=== PATIENT | female | born 1970 | race African-American/Black ===

== ENCOUNTER 2017-10-23 00:32 | Inpatient (IN) | payer SELFPAY ==
[~2017-10-23] VITALS: Ht 170.2 cm; Wt 162.0 kg
[~2017-10-23 00:32] MED LIST: DOCU-109 PO; FERR325T72 PO
[2017-10-23 01:26] LABS: BASO # 0.1 x10^3/uL (0.0-0.2); BASO % 1 % (0-3); EOS # 0.2 x10^3/uL (0.0-0.7); EOS % 3 % (0-3); HEMOGLOBIN 9.4 g/dL (12.0-15.5); LYMPH % 36 % (24-48); MEAN CORPUSCULAR HEMOGLOBIN 22 pg (25-35); MEAN CORPUSCULAR HGB CONC 31 g/dL (31-37); MEAN CORPUSCULAR VOLUME 71 fL (79-100); MONO # 0.6 x10^3/uL (0.0-1.1); MONO % 7 % (0-9); NEUT # 4.5 x10^3uL (1.8-7.7); NEUT % 53 % (31-73); PLATELET COUNT 325 x10^3/uL (140-400); RED BLOOD COUNT 4.22 x10^6/uL (3.50-5.40); RED CELL DISTRIBUTION WIDTH 17.8 % (11.5-14.5); WHITE BLOOD COUNT 8.4 x10^3/uL (4.0-11.0)
[2017-10-23 01:43] LABS: CALCIUM 9.3 mg/dL (8.5-10.1); CREATININE 1.1 mg/dL (0.6-1.0); GFR 64.1; POTASSIUM 3.8 mmol/L (3.5-5.1)
[2017-10-23 01:49] LABS: ALBUMIN/GLOBULIN RATIO 0.6 (1.0-1.7); TOTAL BILIRUBIN 0.2 mg/dL (0.2-1.0); TOTAL PROTEIN 7.8 g/dL (6.4-8.2)
--- NOTE | 2017-10-23 02:17 | PHYS DOC ---
Past Medical History Past Medical History: Anemia, Hypertension Past Surgical History: Additional Past Surgical Histo: PT WOULD NOT RESPOND TO QUESTIONS Alcohol Use: None Drug Use: None Adult General Chief Complaint Chief Complaint: SHORTNESS OF BREATH HPI HPI Patient is a 47-year-old female who presents with complaint of shortness of breath and chest discomfort that she describes as tightness. She states symptoms have been present for the last 2 days. 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 She states that she had been on Coumadin from April through July and she has been off of the Coumadin since July. She does indicate that she started taking the Coumadin again 2 days ago. She states the shortness of breath is worsened with minimal exertion, stating that she is out of breath just walking from her living room to the bathroom. She rates the pain in her chest and 8 out of 10. She denies any nausea, vomiting or diaphoresis. She states that nothing improves her symptoms. Review of Systems Review of Systems Constitutional: Denies fever or chills [] Respiratory: Positive cough and shortness breath[] Cardiovascular: Positive chest pain/tightness[] GI: Denies abdominal pain, nausea, vomiting or diarrhea [] Musculoskeletal: Denies back pain or joint pain [] Integument: Denies rash or skin lesions [] All other systems were reviewed and found to be within normal limits, except as documented in this note. Allergies Allergies Allergies Coded Allergies Type Severity Reaction Last Updated Verified Penicillins Allergy Unknown 10/23/17 Yes Physical Exam Physical Exam Constitutional: Well developed, well nourished, no acute distress, non-toxic appearance. [] HENT: Normocephalic, atraumatic, bilateral external ears normal, oropharynx moist, no oral exudates, nose normal. [] Eyes: PERRLA, EOMI, conjunctiva normal, no discharge. [] Neck: Normal range of motion, no tenderness, supple, no stridor. [] Cardiovascular:Heart rate regular rhythm, no murmur [] Lungs & Thorax: Bilateral breath sounds clear to auscultation [] Abdomen: Bowel sounds normal, soft, no tenderness. [] Skin: Warm, dry, no erythema, no rash. [] Back: No tenderness, no CVA tenderness. [] Extremities: 1+ pitting edema is noted lower extremities bilaterally. [] Neurologic: Alert and oriented X 3, normal motor function, normal sensory function, no focal deficits noted. [] Current Patient Data Vital Signs Vital Signs Date Time Temp Pulse Resp B/P (MAP) Pulse Ox O2 Delivery O2 Flow Rate FiO2 10/23/17 03:30 62 18 152/74 (100) 99 10/23/17 01:01 97.6 Room Air 97.6 Lab Values Laboratory Tests Test 10/23/17 01:10 White Blood Count 8.4 x10^3/uL (4.0-11.0) Red Blood Count 4.22 x10^6/uL (3.50-5.40) Hemoglobin 9.4 g/dL (12.0-15.5) L Hematocrit 30.0 % (36.0-47.0) L Mean Corpuscular Volume 71 fL (79-100) L Mean Corpuscular Hemoglobin 22 pg (25-35) L Mean Corpuscular Hemoglobin Concent 31 g/dL (31-37) Red Cell Distribution Width 17.8 % (11.5-14.5) H Platelet Count 325 x10^3/uL (140-400) Neutrophils (%) (Auto) 53 % (31-73) Lymphocytes (%) (Auto) 36 % (24-48) Monocytes (%) (Auto) 7 % (0-9) Eosinophils (%) (Auto) 3 % (0-3) Basophils (%) (Auto) 1 % (0-3) Neutrophils # (Auto) 4.5 x10^3uL (1.8-7.7) Lymphocytes # (Auto) 3.0 x10^3/uL (1.0-4.8) Monocytes # (Auto) 0.6 x10^3/uL (0.0-1.1) Eosinophils # (Auto) 0.2 x10^3/uL (0.0-0.7) Basophils # (Auto) 0.1 x10^3/uL (0.0-0.2) D-Dimer (Irena) 0.36 ug/mlFEU (0.00-0.50) Sodium Level 137 mmol/L (136-145) Potassium Level 3.8 mmol/L (3.5-5.1) Chloride Level 103 mmol/L (98-107) Carbon Dioxide Level 30 mmol/L (21-32) Anion Gap 4 (6-14) L Blood Urea Nitrogen 20 mg/dL (7-20) Creatinine 1.1 mg/dL (0.6-1.0) H Estimated GFR (Cockcroft-Gault) 64.1 BUN/Creatinine Ratio 18 (6-20) Glucose Level 149 mg/dL (70-99) H Calcium Level 9.3 mg/dL (8.5-10.1) Total Bilirubin 0.2 mg/dL (0.2-1.0) Aspartate Amino Transferase (AST) 10 U/L (15-37) L Alanine Aminotransferase (ALT) 13 U/L (14-59) L Alkaline Phosphatase 88 U/L (46-116) Troponin I Quantitative < 0.017 ng/mL (0.000-0.055) LV-Aka-G-Type Natriuretic Peptide 61 pg/mL (0-124) Total Protein 7.8 g/dL (6.4-8.2) Albumin 3.0 g/dL (3.4-5.0) L Albumin/Globulin Ratio 0.6 (1.0-1.7) L Laboratory Tests 10/23/17 01:10 Laboratory Tests 10/23/17 01:10 EKG EKG [] Interpretation Time: EKG demonstrates a normal sinus rhythm with first-degree AV block. Heart rate is 65. There are no significant ST segment abnormalities. Radiology/Procedures Radiology/Procedures [] Impressions: Chest x-ray demonstrates no acute process. Course & Med Decision Making Course & Med Decision Making Pertinent Labs and Imaging studies reviewed. (See chart for details) A cardiac workup was completed as well as a d-dimer. Initial workup has returned unremarkable. A second troponin has been ordered. Findings of workup have been reviewed with patient and patient does indicate that she is still having some chest pressure. Patient is morbidly obese and is hypertensive. Patient also has history of DVT. She does not have a primary care provider and therefore we'll plan on keeping patient overnight for cardiac rule out. Dragon Disclaimer Dragon Disclaimer This electronic medical record was generated, in whole or in part, using a voice recognition dictation system. Departure Departure Impression: Primary Impression: Chest pain Additional Impressions: Dyspnea Hypertension Disposition: 09 ADMITTED INPATIENT Admitting Physician: Xie. Ortega Condition: GOOD Referrals: NO PCP (PCP) Problem Qualifiers Primary Impression: Chest pain Chest pain type: unspecified Qualified Codes: R07.9 - Chest pain, unspecified Additional Impressions: Dyspnea Dyspnea type: dyspnea on exertion Qualified Codes: R06.09 - Other forms of dyspnea Hypertension Hypertension type: unspecified Qualified Codes: I10 - Essential (primary) hypertension FEI GOLDMAN Jr. DO Oct 23, 2017 02:17
[2017-10-23] MEDS ORDERED: NITROGLYCERIN SUBLINGUAL 0.4 MG BOTTLE OF 25. SL PRN ×2 (04:15→04:30)
[2017-10-23] MEDS ORDERED: MORPHINE SULFATE 2 MG/ML DISP.SYRIN. IV PRN (04:30)
[2017-10-23] MEDS ORDERED: ONDANSETRON PF 4 MG/2 ML VIAL. IV PRN (04:30)
[2017-10-23] MEDS ORDERED: ASPIRIN 325 MG TABLET PO ONE (04:30)
[2017-10-23 05:29] VITALS: BP 159/86
[2017-10-23] MEDS ORDERED: METF500T5 PO (05:40)
[2017-10-23] MEDS ORDERED: VERA240C2 PO (05:40)
[2017-10-23] MEDS ORDERED: WARF2TAB96 PO (05:40)
--- NOTE | 2017-10-23 05:42 | EKG ---
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
[2017-10-23 07:42] VITALS: BP 136/82
--- NOTE | 2017-10-23 07:42 | RAD ---
Portable chest, 10/23/2017: HISTORY: Chest pain, shortness of breath The heart is at the upper limits of normal in size. The pulmonary vascularity is normal. No pulmonary infiltrate is seen. There is no evidence of pleural fluid. IMPRESSION: No acute cardiopulmonary abnormality is detected. Electronically signed by: Ramy Bueno MD (10/23/2017 7:39 AM) [facility]
[2017-10-23 09:44] LABS: ANISOCYTOSIS SLIGHT; HYPOCHROMIA MOD; MICROCYTOSIS PRESENT; PLT ESTIMATE ADEQUATE (ADEQUATE)
[2017-10-23] MEDS ORDERED: DOCUSATE SODIUM 100 MG CAPSULE. PO PRN (10:00)
[2017-10-23] MEDS ORDERED: MORPHINE SULFATE 4 MG/ML DISP.SYRIN. IV PRN (10:00)
--- NOTE | 2017-10-23 10:00 | PDOC1 ---
History and Physical Date of Admission Date of Admission DATE: 10/23/17 TIME: 09:48 Identification/Chief Complaint Chief Complaint chest pain Source Source: Chart review, Patient History of Present Illness History of Present Illness Ms. Flood, is a 47-year-old female admit with acute chest pain and shortness of breath. She has had that she describes as tightness, was 8./10, now almost gone symptoms had worsened over 2 days, and she has felt markedly tired, and weak ms. 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 Past Medical History Cardiovascular: HTN Heme/Onc: Anemia NOS Psych: Anxiety Past Surgical History Past Surgical History: No pertinent history Family History Family History: Family History Unknown Social History Smoke: No ALCOHOL: none Drugs: None Current Problem List Problem List Problems Medical Problems: (1) Chest pain Status: Acute (2) Dyspnea Status: Acute (3) Hypertension Status: Acute Current Medications Current Medications Current Medications Aspirin (Ashu Aspirin) 325 mg 1X ONCE PO Last administered on 10/23/17at 04:30 ; Start 10/23/17 at 04:30; Stop 10/23/17 at 04:31; Status DC Nitroglycerin (Nitrostat) 0.4 mg PRN Q5MIN PRN SL CHEST PAIN; Start 10/23/17 at 04:30 Ondansetron HCl (Zofran) 4 mg PRN Q8HRS PRN IV NAUSEA/VOMITING; Start 10/23/17 at 04:30; Stop 10/24/17 at 04:29 Morphine Sulfate (Morphine Sulfate) 2 mg PRN Q2HR PRN IV PAIN; Start 10/23/17 at 04:30; Stop 10/24/17 at 04:29 Nitroglycerin (Nitrostat) 0.4 mg PRN Q5MIN PRN SL CHEST PAIN; Start 10/23/17 at 04:15; Stop 10/24/17 at 06:00 Lidocaine (Lidoderm) 1 patch DAILY TD ; Start 10/23/17 at 10:00; Status UNV Miscellaneous (Lidoderm Patch Removal) 1 ea QHS MC ; Start 10/23/17 at 21:00; Status UNV Active Scripts Active Colace (Docusate Sodium) 100 Mg Capsule 100 Mg PO PRN DAILY PRN Feosol (Ferrous Sulfate) 325 Mg Tablet 325 Mg PO DAILYWBKFT Reported Metformin Hcl 500 Mg Tablet 500 Mg PO BIDWMEALS Verapamil Er (Verapamil Hcl) 240 Mg Cap24h.pel 240 Mg PO DAILY Warfarin Sodium 2 Mg Tablet 1 Mg PO DAILY Allergies Allergies: Coded Allergies: Penicillins (Verified Allergy, Unknown, 10/23/17) ROS General: No: Chills, Night Sweats, Fatigue, Malaise, Appetite, Other PSYCHOLOGICAL ROS: No: Anxiety, Behavioral Disorder, Concentration difficultie , Decreased libido, Depression, Disorientation, Hallucinations, Hostility, Irritablity, Memory difficulties, Mood Swings, Obsessive thoughts, Physical abuse, Sexual abuse, Sleep disturbances, Suicidal ideation, Other Eyes: No Blurry vision, No Decreased vision, No Double vision, No Dry eyes, No Excessive tearing, No Eye Pain, No Itchy Eyes, No Loss of vision, No Photophobia , No Scotomata, No Uses contacts, No Uses glasses, No Other HEENT: No: Heacaches, Visual Changes, Hearing change, Nasal congestion, Nasal discharge, Oral lesions, Sinus pain, Sore Throat, Epistaxis, Sneezing, Snoring, Tinnitus, Vertigo, Vocal changes, Other Respiratory: No: Cough, Hemoptysis, Orthopnea, Pleuritic Pain, Shortness of breath, SOB with excertion, Sputum Changes, Stridor, Tachypnea, Wheezing, Other Cardiovascular: No Chest Pain, No Palpitations, No Orthopnea, No Paroxysmal Noc. Dyspnea, No Edema, No Lt Headedness, No Other Gastrointestinal: No Nausea, No Vomiting, No Abdominal Pain, No Diarrhea, No Constipation, No Melena, No Hematochezia, No Other Genitourinary: No Dysuria, No Frequency, No Incontinence, No Hematuria, No Retention, No Discharge, No Urgency, No Pain, No Flank Pain, No Other, No , No , No , No , No , No , No Musculoskeletal: No Gait Disturbance, No Joint Pain, No Joint Stiffness, No Joint Swelling, No Muscle Pain, No Muscular Weakness, No Pain In:, No Swelling In:, No Other Neurological: No Behavorial Changes, No Bowel/Bladder ControlChng, No Confusion , No Dizziness, No Gait Disturbance, No Headaches, No Impaired Coord/balance, No Memory Loss, No Numbness/Tingling, No Seizures, No Speech Problems, No Tremors, No Visual Changes, No Weakness, No Other Skin: No Dry Skin, No Eczema, No Hair Changes, No Lumps, No Mole Changes, No Mottling, No Nail Changes, No Pruritus, No Rash, No Skin Lesion Changes, No Other, No Acne Physical Exam General: Alert, Oriented X3, Cooperative, mild distress HEENT: PERRLA, EOMI, Mucous membr. moist/pink, Other Lungs: Clear to auscultation Heart: S1S2, RRR, no gallops, no murmurs Abdomen: Soft (very obese, ), No tenderness Rectal Exam: not examined Extremities: No clubbing, No edema Skin: No rashes, No significant lesion Neuro: Normal gait, Normal speech, Normal tone Psych/Mental Status: Mood NL, Other Vitals Vitals Vital Signs Date Time Temp Pulse Resp B/P (MAP) Pulse Ox O2 Delivery O2 Flow Rate FiO2 10/23/17 07:42 98.6 93 18 136/82 (100) 95 Room Air 98.6 Labs Labs Laboratory Tests Test 10/23/17 01:10 10/23/17 04:15 10/23/17 07:15 White Blood Count 8.4 x10^3/uL (4.0-11.0) Red Blood Count 4.22 x10^6/uL (3.50-5.40) Hemoglobin 9.4 g/dL (12.0-15.5) Hematocrit 30.0 % (36.0-47.0) Mean Corpuscular Volume 71 fL (79-100) Mean Corpuscular Hemoglobin 22 pg (25-35) Mean Corpuscular Hemoglobin Concent 31 g/dL (31-37) Red Cell Distribution Width 17.8 % (11.5-14.5) Platelet Count 325 x10^3/uL (140-400) Neutrophils (%) (Auto) 53 % (31-73) Lymphocytes (%) (Auto) 36 % (24-48) Monocytes (%) (Auto) 7 % (0-9) Eosinophils (%) (Auto) 3 % (0-3) Basophils (%) (Auto) 1 % (0-3) Neutrophils # (Auto) 4.5 x10^3uL (1.8-7.7) Lymphocytes # (Auto) 3.0 x10^3/uL (1.0-4.8) Monocytes # (Auto) 0.6 x10^3/uL (0.0-1.1) Eosinophils # (Auto) 0.2 x10^3/uL (0.0-0.7) Basophils # (Auto) 0.1 x10^3/uL (0.0-0.2) Platelet Estimate Adequate (ADEQUATE) Hypochromasia Mod Anisocytosis Slight Microcytosis Present D-Dimer (Irena) 0.36 ug/mlFEU (0.00-0.50) Sodium Level 137 mmol/L (136-145) Potassium Level 3.8 mmol/L (3.5-5.1) Chloride Level 103 mmol/L (98-107) Carbon Dioxide Level 30 mmol/L (21-32) Anion Gap 4 (6-14) Blood Urea Nitrogen 20 mg/dL (7-20) Creatinine 1.1 mg/dL (0.6-1.0) Estimated GFR (Cockcroft-Gault) 64.1 BUN/Creatinine Ratio 18 (6-20) Glucose Level 149 mg/dL (70-99) Calcium Level 9.3 mg/dL (8.5-10.1) Total Bilirubin 0.2 mg/dL (0.2-1.0) Aspartate Amino Transf (AST/SGOT) 10 U/L (15-37) Alanine Aminotransferase (ALT/SGPT) 13 U/L (14-59) Alkaline Phosphatase 88 U/L (46-116) Troponin I Quantitative < 0.017 ng/mL (0.000-0.055) < 0.017 ng/mL (0.000-0.055) < 0.017 ng/mL (0.000-0.055) VI-Qvu-A-Type Natriuretic Peptide 61 pg/mL (0-124) Total Protein 7.8 g/dL (6.4-8.2) Albumin 3.0 g/dL (3.4-5.0) Albumin/Globulin Ratio 0.6 (1.0-1.7) Laboratory Tests Test 10/23/17 01:10 10/23/17 04:15 10/23/17 07:15 White Blood Count 8.4 x10^3/uL (4.0-11.0) Red Blood Count 4.22 x10^6/uL (3.50-5.40) Hemoglobin 9.4 g/dL (12.0-15.5) Hematocrit 30.0 % (36.0-47.0) Mean Corpuscular Volume 71 fL (79-100) Mean Corpuscular Hemoglobin 22 pg (25-35) Mean Corpuscular Hemoglobin Concent 31 g/dL (31-37) Red Cell Distribution Width 17.8 % (11.5-14.5) Platelet Count 325 x10^3/uL (140-400) Neutrophils (%) (Auto) 53 % (31-73) Lymphocytes (%) (Auto) 36 % (24-48) Monocytes (%) (Auto) 7 % (0-9) Eosinophils (%) (Auto) 3 % (0-3) Basophils (%) (Auto) 1 % (0-3) Neutrophils # (Auto) 4.5 x10^3uL (1.8-7.7) Lymphocytes # (Auto) 3.0 x10^3/uL (1.0-4.8) Monocytes # (Auto) 0.6 x10^3/uL (0.0-1.1) Eosinophils # (Auto) 0.2 x10^3/uL (0.0-0.7) Basophils # (Auto) 0.1 x10^3/uL (0.0-0.2) Platelet Estimate Adequate (ADEQUATE) Hypochromasia Mod Anisocytosis Slight Microcytosis Present D-Dimer (Irena) 0.36 ug/mlFEU (0.00-0.50) Sodium Level 137 mmol/L (136-145) Potassium Level 3.8 mmol/L (3.5-5.1) Chloride Level 103 mmol/L (98-107) Carbon Dioxide Level 30 mmol/L (21-32) Anion Gap 4 (6-14) Blood Urea Nitrogen 20 mg/dL (7-20) Creatinine 1.1 mg/dL (0.6-1.0) Estimated GFR (Cockcroft-Gault) 64.1 BUN/Creatinine Ratio 18 (6-20) Glucose Level 149 mg/dL (70-99) Calcium Level 9.3 mg/dL (8.5-10.1) Total Bilirubin 0.2 mg/dL (0.2-1.0) Aspartate Amino Transf (AST/SGOT) 10 U/L (15-37) Alanine Aminotransferase (ALT/SGPT) 13 U/L (14-59) Alkaline Phosphatase 88 U/L (46-116) Troponin I Quantitative < 0.017 ng/mL (0.000-0.055) < 0.017 ng/mL (0.000-0.055) < 0.017 ng/mL (0.000-0.055) HX-Eik-X-Type Natriuretic Peptide 61 pg/mL (0-124) Total Protein 7.8 g/dL (6.4-8.2) Albumin 3.0 g/dL (3.4-5.0) Albumin/Globulin Ratio 0.6 (1.0-1.7) VTE Prophylaxis Ordered VTE Prophylaxis Devices: No VTE Pharmacological Prophylaxi: Yes Assessment/Plan Assessment/Plan chest pain angina with exertion hx of DVT, d-dimer low, marked dyspnea on exertion, check echo to eval for diastolic heart failure , she reports possible history of enlarged heart morbid obesity, BMI 56 serum albumin low, mod malnutrition microcytic anemia, she reports hx iron deficiency, colonoscpy done 3 years ago , IV iron and blood given at [facility] months ago pre Dm2 on metformin MAI RIVERA MD Oct 23, 2017 10:00
[2017-10-23] MEDS: VERAPAMIL SR 120 MG TABLET.ER. PO SCH (10:12)
[2017-10-23] MEDS: FERROUS SULFATE 325 MG TABLET. PO SCH (10:12)
[2017-10-23] MEDS: LIDOCAINE (700MG/PATCH) PATCH. TD SCH (10:15)
[2017-10-23 11:49] VITALS: BP 147/83
--- NOTE | 2017-10-23 15:03 | PDOC2 ---
CONSULT Date of Consult Date of Consult DATE: 10/23/17 TIME: 14:56 Reason for Consult Reason for Consult: Increasing dyspnea on exertion and chest pain Referring Physician Referring Physician: Dr. Norton Identification/Chief Complaint Chief Complaint Increasing shortness of breath Source Source: Patient History of Present Illness Reason for Visit: The patient is a 47-year-old female who reports episodes of increasing shortness of breath and chest discomfort over the past 2-3 days. The patient reports a history of hypertension and possibly a previous DVT. He has been off Coumadin for 3 months. She also reports a history of a cardiac workup at [facility] which by her report included a normal stress test earlier this year. There was some abnormality on her echocardiogram and she was treated medically. This morning she is feeling better. Her shortness of breath has improved. Her chest pain has resolved. Cardiac enzymes are normal. Past Medical History Cardiovascular: HTN, Other (heart murmur) Heme/Onc: Anemia NOS Psych: Anxiety Past Surgical History Past Surgical History: , No pertinent history Family History Family History: Family History Unknown Social History No ALCOHOL: none Drugs: None Lives: with Family Current Problem List Problem List Problems Medical Problems: (1) Chest pain Status: Acute (2) Dyspnea Status: Acute (3) Hypertension Status: Acute Current Medications Current Medications Current Medications Aspirin (Ashu Aspirin) 325 mg 1X ONCE PO Last administered on 10/23/17at 04:30 ; Start 10/23/17 at 04:30; Stop 10/23/17 at 04:31; Status DC Nitroglycerin (Nitrostat) 0.4 mg PRN Q5MIN PRN SL CHEST PAIN; Start 10/23/17 at 04:30 Ondansetron HCl (Zofran) 4 mg PRN Q8HRS PRN IV NAUSEA/VOMITING; Start 10/23/17 at 04:30; Stop 10/24/17 at 04:29 Morphine Sulfate (Morphine Sulfate) 2 mg PRN Q2HR PRN IV PAIN; Start 10/23/17 at 04:30; Stop 10/23/17 at 09:56; Status DC Nitroglycerin (Nitrostat) 0.4 mg PRN Q5MIN PRN SL CHEST PAIN; Start 10/23/17 at 04:15; Stop 10/23/17 at 09:56; Status DC Lidocaine (Lidoderm) 1 patch DAILY TD Last administered on 10/23/17at 10:15; Start 10/23/17 at 10:00 Miscellaneous (Lidoderm Patch Removal) 1 ea QHS MC ; Start 10/23/17 at 21:00 Docusate Sodium (Colace) 100 mg PRN DAILY PRN PO CONSTIPATION; Start 10/23/17 at 10:00 Ferrous Sulfate (Feosol) 325 mg DAILYWBKFT PO Last administered on 10/23/17at 10 :12; Start 10/23/17 at 10:00 Verapamil HCl (Calan Sr) 240 mg DAILY PO Last administered on 10/23/17at 10:12; Start 10/23/17 at 10:00 Morphine Sulfate (Morphine Sulfate) 4 mg PRN Q2HR PRN IV PAIN; Start 10/23/17 at 10:00 Enoxaparin Sodium (Lovenox Per Pharmacy Prophylaxis Dosing) 1 each PRN DAILY PRN MC SEE COMMENTS; Start 10/23/17 at 10:15 Enoxaparin Sodium (Lovenox 60mg Syringe) 60 mg Q12HR SQ Last administered on 01/30at 12:27; Start 10/23/17 at 10:30 Active Scripts Active Colace (Docusate Sodium) 100 Mg Capsule 100 Mg PO PRN DAILY PRN Feosol (Ferrous Sulfate) 325 Mg Tablet 325 Mg PO DAILYWBKFT Reported Metformin Hcl 500 Mg Tablet 500 Mg PO BIDWMEALS Verapamil Er (Verapamil Hcl) 240 Mg Cap24h.pel 240 Mg PO DAILY Warfarin Sodium 2 Mg Tablet 1 Mg PO DAILY Allergies Allergies: Coded Allergies: Penicillins (Verified Allergy, Unknown, 10/23/17) ROS General: YES: Fatigue Respiratory: YES: SOB with excertion Cardiovascular: yes Chest Pain Physical Exam General: No acute distress HEENT: Atraumatic Lungs: Clear to auscultation Heart: Regular rate Abdomen: Normal bowel sounds Vitals VITALS Vital Signs Date Time Temp Pulse Resp B/P (MAP) Pulse Ox O2 Delivery O2 Flow Rate FiO2 10/23/17 11:49 98.0 104 18 147/83 (104) 95 Room Air 98.0 Labs Labs Laboratory Tests Test 10/23/17 01:10 10/23/17 04:15 10/23/17 07:15 White Blood Count 8.4 x10^3/uL (4.0-11.0) Red Blood Count 4.22 x10^6/uL (3.50-5.40) Hemoglobin 9.4 g/dL (12.0-15.5) Hematocrit 30.0 % (36.0-47.0) Mean Corpuscular Volume 71 fL (79-100) Mean Corpuscular Hemoglobin 22 pg (25-35) Mean Corpuscular Hemoglobin Concent 31 g/dL (31-37) Red Cell Distribution Width 17.8 % (11.5-14.5) Platelet Count 325 x10^3/uL (140-400) Neutrophils (%) (Auto) 53 % (31-73) Lymphocytes (%) (Auto) 36 % (24-48) Monocytes (%) (Auto) 7 % (0-9) Eosinophils (%) (Auto) 3 % (0-3) Basophils (%) (Auto) 1 % (0-3) Neutrophils # (Auto) 4.5 x10^3uL (1.8-7.7) Lymphocytes # (Auto) 3.0 x10^3/uL (1.0-4.8) Monocytes # (Auto) 0.6 x10^3/uL (0.0-1.1) Eosinophils # (Auto) 0.2 x10^3/uL (0.0-0.7) Basophils # (Auto) 0.1 x10^3/uL (0.0-0.2) Platelet Estimate Adequate (ADEQUATE) Hypochromasia Mod Anisocytosis Slight Microcytosis Present D-Dimer (Irena) 0.36 ug/mlFEU (0.00-0.50) Sodium Level 137 mmol/L (136-145) Potassium Level 3.8 mmol/L (3.5-5.1) Chloride Level 103 mmol/L (98-107) Carbon Dioxide Level 30 mmol/L (21-32) Anion Gap 4 (6-14) Blood Urea Nitrogen 20 mg/dL (7-20) Creatinine 1.1 mg/dL (0.6-1.0) Estimated GFR (Cockcroft-Gault) 64.1 BUN/Creatinine Ratio 18 (6-20) Glucose Level 149 mg/dL (70-99) Calcium Level 9.3 mg/dL (8.5-10.1) Total Bilirubin 0.2 mg/dL (0.2-1.0) Aspartate Amino Transf (AST/SGOT) 10 U/L (15-37) Alanine Aminotransferase (ALT/SGPT) 13 U/L (14-59) Alkaline Phosphatase 88 U/L (46-116) Troponin I Quantitative < 0.017 ng/mL (0.000-0.055) < 0.017 ng/mL (0.000-0.055) < 0.017 ng/mL (0.000-0.055) ZK-Pwr-G-Type Natriuretic Peptide 61 pg/mL (0-124) Total Protein 7.8 g/dL (6.4-8.2) Albumin 3.0 g/dL (3.4-5.0) Albumin/Globulin Ratio 0.6 (1.0-1.7) Iron Level 26 ug/dL (50-170) Total Iron Binding Capacity 407 ug/dL (250-450) Iron Saturation 6 % (15-34) Laboratory Tests Test 10/23/17 01:10 10/23/17 04:15 10/23/17 07:15 White Blood Count 8.4 x10^3/uL (4.0-11.0) Red Blood Count 4.22 x10^6/uL (3.50-5.40) Hemoglobin 9.4 g/dL (12.0-15.5) Hematocrit 30.0 % (36.0-47.0) Mean Corpuscular Volume 71 fL (79-100) Mean Corpuscular Hemoglobin 22 pg (25-35) Mean Corpuscular Hemoglobin Concent 31 g/dL (31-37) Red Cell Distribution Width 17.8 % (11.5-14.5) Platelet Count 325 x10^3/uL (140-400) Neutrophils (%) (Auto) 53 % (31-73) Lymphocytes (%) (Auto) 36 % (24-48) Monocytes (%) (Auto) 7 % (0-9) Eosinophils (%) (Auto) 3 % (0-3) Basophils (%) (Auto) 1 % (0-3) Neutrophils # (Auto) 4.5 x10^3uL (1.8-7.7) Lymphocytes # (Auto) 3.0 x10^3/uL (1.0-4.8) Monocytes # (Auto) 0.6 x10^3/uL (0.0-1.1) Eosinophils # (Auto) 0.2 x10^3/uL (0.0-0.7) Basophils # (Auto) 0.1 x10^3/uL (0.0-0.2) Platelet Estimate Adequate (ADEQUATE) Hypochromasia Mod Anisocytosis Slight Microcytosis Present D-Dimer (Irena) 0.36 ug/mlFEU (0.00-0.50) Sodium Level 137 mmol/L (136-145) Potassium Level 3.8 mmol/L (3.5-5.1) Chloride Level 103 mmol/L (98-107) Carbon Dioxide Level 30 mmol/L (21-32) Anion Gap 4 (6-14) Blood Urea Nitrogen 20 mg/dL (7-20) Creatinine 1.1 mg/dL (0.6-1.0) Estimated GFR (Cockcroft-Gault) 64.1 BUN/Creatinine Ratio 18 (6-20) Glucose Level 149 mg/dL (70-99) Calcium Level 9.3 mg/dL (8.5-10.1) Total Bilirubin 0.2 mg/dL (0.2-1.0) Aspartate Amino Transf (AST/SGOT) 10 U/L (15-37) Alanine Aminotransferase (ALT/SGPT) 13 U/L (14-59) Alkaline Phosphatase 88 U/L (46-116) Troponin I Quantitative < 0.017 ng/mL (0.000-0.055) < 0.017 ng/mL (0.000-0.055) < 0.017 ng/mL (0.000-0.055) ZJ-Yog-L-Type Natriuretic Peptide 61 pg/mL (0-124) Total Protein 7.8 g/dL (6.4-8.2) Albumin 3.0 g/dL (3.4-5.0) Albumin/Globulin Ratio 0.6 (1.0-1.7) Iron Level 26 ug/dL (50-170) Total Iron Binding Capacity 407 ug/dL (250-450) Iron Saturation 6 % (15-34) Images Images Chest x-ray shows no acute infiltrates. Assessment/Plan Assessment/Plan 1. Increasing dyspnea on exertion. This is somewhat improved. Patient's d-dimer is normal. EKG shows no ischemic changes. Troponins are normal. She reports some type of echocardiographic abnormality earlier this year but a normal stress test. We'll obtain records from [facility]. We'll check an echocardiogram. We'll gradually increase activities. 2. Hypertension. Patient had pressures under better control. Will continue present treatments. 3. Reported history of DVTs. D-dimer is normal. 4. Morbid obesity. Thank you for allowing us to participate in the care of your patient. ABIODUN ANGULO MD Oct 23, 2017 15:03
[2017-10-23 15:31] VITALS: BP 143/80
[2017-10-23 19:39] VITALS: BP_SYST 74
[2017-10-23] MEDS: PATCH REMOVAL. MC SCH (20:08)
[2017-10-23 23:59] VITALS: BP 146/77
[2017-10-24 03:10] VITALS: BP 118/68
[2017-10-24 07:56] VITALS: BP 136/70
[2017-10-24] MEDS: LIDOCAINE (700MG/PATCH) PATCH. TD SCH (08:26)
[2017-10-24] MEDS: FERROUS SULFATE 325 MG TABLET. PO SCH (08:26)
[2017-10-24] MEDS: VERAPAMIL SR 120 MG TABLET.ER. PO SCH (08:27)
[2017-10-24 08:30] LABS: BASO # 0.1 x10^3/uL (0.0-0.2); BASO % 1 % (0-3); EOS # 0.2 x10^3/uL (0.0-0.7); EOS % 3 % (0-3); HEMATOCRIT 30.2 % (36.0-47.0); HEMOGLOBIN 9.3 g/dL (12.0-15.5); LYMPH # 2.2 x10^3/uL (1.0-4.8); LYMPH % 31 % (24-48); MEAN CORPUSCULAR HEMOGLOBIN 22 pg (25-35); MEAN CORPUSCULAR HGB CONC 31 g/dL (31-37); MEAN CORPUSCULAR VOLUME 72 fL (79-100); MONO # 0.4 x10^3/uL (0.0-1.1); MONO % 5 % (0-9); NEUT # 4.2 x10^3uL (1.8-7.7); NEUT % 60 % (31-73); PLATELET COUNT 328 x10^3/uL (140-400); RED BLOOD COUNT 4.21 x10^6/uL (3.50-5.40); RED CELL DISTRIBUTION WIDTH 18.3 % (11.5-14.5)
[2017-10-24 08:36] LABS: CREATININE 0.9 mg/dL (0.6-1.0); GFR 80.9; POTASSIUM 4.4 mmol/L (3.5-5.1)
[2017-10-24] MEDS ORDERED: MAG HYDROX/ALUMINUM HYD/SIMETH 30 ML ORAL.SUSP PO PRN (09:00)
[2017-10-24] MEDS ORDERED: FAMOTIDINE 20 MG TABLET. PO ONE (09:15)
[2017-10-24] MEDS ORDERED: IRON SUCROSE COMPLEX 500 MG in IV NORMAL SALINE 250ML 250 ML IV ONE (09:30)
--- NOTE | 2017-10-24 09:31 | PDOC ---
PROGRESS NOTES Chief Complaint Chief Complaint chest pain angina with exertion hx of DVT, d-dimer low, marked dyspnea on exertion, poss diastolic heart failure, morbid obesity, BMI 56 serum albumin low, mod malnutrition microcytic anemia, iron deficiency, will give IV iron pre Dm2 on metformin History of Present Illness History of Present Illness abd pain, gas Vitals Vitals Vital Signs Date Time Temp Pulse Resp B/P (MAP) Pulse Ox O2 Delivery O2 Flow Rate FiO2 10/24/17 08:27 66 136/70 10/24/17 07:56 97.9 18 97 Room Air 97.9 Physical Exam General: Alert, Cooperative, No acute distress Heart: Regular rate Lungs: Clear Abdomen: Normal bowel sounds, No tenderness Extremities: No clubbing, No edema Skin: No rashes, No significant lesion Labs LABS Laboratory Tests Test 10/23/17 20:32 10/24/17 07:35 Glucose (Fingerstick) 141 mg/dL (70-99) White Blood Count 7.0 x10^3/uL (4.0-11.0) Red Blood Count 4.21 x10^6/uL (3.50-5.40) Hemoglobin 9.3 g/dL (12.0-15.5) Hematocrit 30.2 % (36.0-47.0) Mean Corpuscular Volume 72 fL (79-100) Mean Corpuscular Hemoglobin 22 pg (25-35) Mean Corpuscular Hemoglobin Concent 31 g/dL (31-37) Red Cell Distribution Width 18.3 % (11.5-14.5) Platelet Count 328 x10^3/uL (140-400) Neutrophils (%) (Auto) 60 % (31-73) Lymphocytes (%) (Auto) 31 % (24-48) Monocytes (%) (Auto) 5 % (0-9) Eosinophils (%) (Auto) 3 % (0-3) Basophils (%) (Auto) 1 % (0-3) Neutrophils # (Auto) 4.2 x10^3uL (1.8-7.7) Lymphocytes # (Auto) 2.2 x10^3/uL (1.0-4.8) Monocytes # (Auto) 0.4 x10^3/uL (0.0-1.1) Eosinophils # (Auto) 0.2 x10^3/uL (0.0-0.7) Basophils # (Auto) 0.1 x10^3/uL (0.0-0.2) Sodium Level 138 mmol/L (136-145) Potassium Level 4.4 mmol/L (3.5-5.1) Chloride Level 103 mmol/L (98-107) Carbon Dioxide Level 29 mmol/L (21-32) Anion Gap 6 (6-14) Blood Urea Nitrogen 19 mg/dL (7-20) Creatinine 0.9 mg/dL (0.6-1.0) Estimated GFR (Cockcroft-Gault) 80.9 Glucose Level 119 mg/dL (70-99) Calcium Level 9.0 mg/dL (8.5-10.1) Assessment and Plan Assessmemt and Plan Problems Medical Problems: (1) Chest pain Status: Acute (2) Dyspnea Status: Acute (3) Hypertension Status: Acute Comment Review of Relevant I have reviewed the following items keanu (where applicable) has been applied. Labs Laboratory Tests Test 10/23/17 01:10 10/23/17 04:15 10/23/17 07:15 10/23/17 20:32 White Blood Count 8.4 x10^3/uL (4.0-11.0) Red Blood Count 4.22 x10^6/uL (3.50-5.40) Hemoglobin 9.4 g/dL (12.0-15.5) Hematocrit 30.0 % (36.0-47.0) Mean Corpuscular Volume 71 fL (79-100) Mean Corpuscular Hemoglobin 22 pg (25-35) Mean Corpuscular Hemoglobin Concent 31 g/dL (31-37) Red Cell Distribution Width 17.8 % (11.5-14.5) Platelet Count 325 x10^3/uL (140-400) Neutrophils (%) (Auto) 53 % (31-73) Lymphocytes (%) (Auto) 36 % (24-48) Monocytes (%) (Auto) 7 % (0-9) Eosinophils (%) (Auto) 3 % (0-3) Basophils (%) (Auto) 1 % (0-3) Neutrophils # (Auto) 4.5 x10^3uL (1.8-7.7) Lymphocytes # (Auto) 3.0 x10^3/uL (1.0-4.8) Monocytes # (Auto) 0.6 x10^3/uL (0.0-1.1) Eosinophils # (Auto) 0.2 x10^3/uL (0.0-0.7) Basophils # (Auto) 0.1 x10^3/uL (0.0-0.2) Platelet Estimate Adequate (ADEQUATE) Hypochromasia Mod Anisocytosis Slight Microcytosis Present D-Dimer (Irena) 0.36 ug/mlFEU (0.00-0.50) Sodium Level 137 mmol/L (136-145) Potassium Level 3.8 mmol/L (3.5-5.1) Chloride Level 103 mmol/L (98-107) Carbon Dioxide Level 30 mmol/L (21-32) Anion Gap 4 (6-14) Blood Urea Nitrogen 20 mg/dL (7-20) Creatinine 1.1 mg/dL (0.6-1.0) Estimated GFR (Cockcroft-Gault) 64.1 BUN/Creatinine Ratio 18 (6-20) Glucose Level 149 mg/dL (70-99) Calcium Level 9.3 mg/dL (8.5-10.1) Total Bilirubin 0.2 mg/dL (0.2-1.0) Aspartate Amino Transf (AST/SGOT) 10 U/L (15-37) Alanine Aminotransferase (ALT/SGPT) 13 U/L (14-59) Alkaline Phosphatase 88 U/L (46-116) Troponin I Quantitative < 0.017 ng/mL (0.000-0.055) < 0.017 ng/mL (0.000-0.055) < 0.017 ng/mL (0.000-0.055) OD-Vjc-Y-Type Natriuretic Peptide 61 pg/mL (0-124) Total Protein 7.8 g/dL (6.4-8.2) Albumin 3.0 g/dL (3.4-5.0) Albumin/Globulin Ratio 0.6 (1.0-1.7) Iron Level 26 ug/dL (50-170) Total Iron Binding Capacity 407 ug/dL (250-450) Iron Saturation 6 % (15-34) Glucose (Fingerstick) 141 mg/dL (70-99) Test 10/24/17 07:35 White Blood Count 7.0 x10^3/uL (4.0-11.0) Red Blood Count 4.21 x10^6/uL (3.50-5.40) Hemoglobin 9.3 g/dL (12.0-15.5) Hematocrit 30.2 % (36.0-47.0) Mean Corpuscular Volume 72 fL (79-100) Mean Corpuscular Hemoglobin 22 pg (25-35) Mean Corpuscular Hemoglobin Concent 31 g/dL (31-37) Red Cell Distribution Width 18.3 % (11.5-14.5) Platelet Count 328 x10^3/uL (140-400) Neutrophils (%) (Auto) 60 % (31-73) Lymphocytes (%) (Auto) 31 % (24-48) Monocytes (%) (Auto) 5 % (0-9) Eosinophils (%) (Auto) 3 % (0-3) Basophils (%) (Auto) 1 % (0-3) Neutrophils # (Auto) 4.2 x10^3uL (1.8-7.7) Lymphocytes # (Auto) 2.2 x10^3/uL (1.0-4.8) Monocytes # (Auto) 0.4 x10^3/uL (0.0-1.1) Eosinophils # (Auto) 0.2 x10^3/uL (0.0-0.7) Basophils # (Auto) 0.1 x10^3/uL (0.0-0.2) Sodium Level 138 mmol/L (136-145) Potassium Level 4.4 mmol/L (3.5-5.1) Chloride Level 103 mmol/L (98-107) Carbon Dioxide Level 29 mmol/L (21-32) Anion Gap 6 (6-14) Blood Urea Nitrogen 19 mg/dL (7-20) Creatinine 0.9 mg/dL (0.6-1.0) Estimated GFR (Cockcroft-Gault) 80.9 Glucose Level 119 mg/dL (70-99) Calcium Level 9.0 mg/dL (8.5-10.1) Laboratory Tests Test 10/23/17 20:32 10/24/17 07:35 Glucose (Fingerstick) 141 mg/dL (70-99) White Blood Count 7.0 x10^3/uL (4.0-11.0) Red Blood Count 4.21 x10^6/uL (3.50-5.40) Hemoglobin 9.3 g/dL (12.0-15.5) Hematocrit 30.2 % (36.0-47.0) Mean Corpuscular Volume 72 fL (79-100) Mean Corpuscular Hemoglobin 22 pg (25-35) Mean Corpuscular Hemoglobin Concent 31 g/dL (31-37) Red Cell Distribution Width 18.3 % (11.5-14.5) Platelet Count 328 x10^3/uL (140-400) Neutrophils (%) (Auto) 60 % (31-73) Lymphocytes (%) (Auto) 31 % (24-48) Monocytes (%) (Auto) 5 % (0-9) Eosinophils (%) (Auto) 3 % (0-3) Basophils (%) (Auto) 1 % (0-3) Neutrophils # (Auto) 4.2 x10^3uL (1.8-7.7) Lymphocytes # (Auto) 2.2 x10^3/uL (1.0-4.8) Monocytes # (Auto) 0.4 x10^3/uL (0.0-1.1) Eosinophils # (Auto) 0.2 x10^3/uL (0.0-0.7) Basophils # (Auto) 0.1 x10^3/uL (0.0-0.2) Sodium Level 138 mmol/L (136-145) Potassium Level 4.4 mmol/L (3.5-5.1) Chloride Level 103 mmol/L (98-107) Carbon Dioxide Level 29 mmol/L (21-32) Anion Gap 6 (6-14) Blood Urea Nitrogen 19 mg/dL (7-20) Creatinine 0.9 mg/dL (0.6-1.0) Estimated GFR (Cockcroft-Gault) 80.9 Glucose Level 119 mg/dL (70-99) Calcium Level 9.0 mg/dL (8.5-10.1) Medications Current Medications Aspirin (Ashu Aspirin) 325 mg 1X ONCE PO Last administered on 10/23/17at 04:30 ; Start 10/23/17 at 04:30; Stop 10/23/17 at 04:31; Status DC Nitroglycerin (Nitrostat) 0.4 mg PRN Q5MIN PRN SL CHEST PAIN; Start 10/23/17 at 04:30 Ondansetron HCl (Zofran) 4 mg PRN Q8HRS PRN IV NAUSEA/VOMITING; Start 10/23/17 at 04:30; Stop 10/24/17 at 04:29; Status DC Morphine Sulfate (Morphine Sulfate) 2 mg PRN Q2HR PRN IV PAIN; Start 10/23/17 at 04:30; Stop 10/23/17 at 09:56; Status DC Nitroglycerin (Nitrostat) 0.4 mg PRN Q5MIN PRN SL CHEST PAIN; Start 10/23/17 at 04:15; Stop 10/23/17 at 09:56; Status DC Lidocaine (Lidoderm) 1 patch DAILY TD Last administered on 10/24/17at 08:26; Start 10/23/17 at 10:00 Miscellaneous (Lidoderm Patch Removal) 1 ea QHS MC Last administered on at 20:08; Start 10/23/17 at 21:00 Docusate Sodium (Colace) 100 mg PRN DAILY PRN PO CONSTIPATION; Start 10/23/17 at 10:00 Ferrous Sulfate (Feosol) 325 mg DAILYWBKFT PO Last administered on 10/24/17at 08 :26; Start 10/23/17 at 10:00 Verapamil HCl (Calan Sr) 240 mg DAILY PO Last administered on 10/24/17at 08:27; Start 10/23/17 at 10:00 Morphine Sulfate (Morphine Sulfate) 4 mg PRN Q2HR PRN IV PAIN; Start 10/23/17 at 10:00 Enoxaparin Sodium (Lovenox Per Pharmacy Prophylaxis Dosing) 1 each PRN DAILY PRN MC SEE COMMENTS; Start 10/23/17 at 10:15 Enoxaparin Sodium (Lovenox 60mg Syringe) 60 mg Q12HR SQ Last administered on 03/01at 08:26; Start 10/23/17 at 10:30 Al Hydroxide/Mg Hydroxide (Mylanta Plus Xs) 30 ml PRN Q2HR PRN PO HEARTBURN / GAS; Start 10/24/17 at 09:00 Iron Sucrose 500 mg/Sodium Chloride 275 ml @ 78.571 mls/ hr 1X ONCE IV Last administered on 10/24/17at 09:23; Start 10/24/17 at 09:30; Stop 10/24/17 at 12:59 Famotidine (Pepcid) 20 mg QHS PO ; Start 10/24/17 at 21:00 Famotidine (Pepcid) 20 mg 1X ONCE PO Last administered on 10/24/17at 09:23; Start 10/24/17 at 09:15; Stop 10/24/17 at 09:16; Status DC Active Scripts Active Colace (Docusate Sodium) 100 Mg Capsule 100 Mg PO PRN DAILY PRN Feosol (Ferrous Sulfate) 325 Mg Tablet 325 Mg PO DAILYWBKFT Reported Metformin Hcl 500 Mg Tablet 500 Mg PO BIDWMEALS Verapamil Er (Verapamil Hcl) 240 Mg Cap24h.pel 240 Mg PO DAILY Warfarin Sodium 2 Mg Tablet 1 Mg PO DAILY Vitals/I & O Vital Sign - Last 24 Hours 10/23/17 10/23/17 10/23/17 10/23/17 10:12 11:49 15:31 19:39 Temp 98.0 97.9 97.9 98.0 97.9 97.9 Pulse 93 104 98 58 Resp 18 18 20 B/P (MAP) 136/82 147/83 (104) 143/80 (101) 74/ Pulse Ox 95 98 99 O2 Delivery Room Air Room Air Room Air 10/23/17 10/23/17 10/24/17 10/24/17 20:00 23:59 03:10 07:56 Temp 97.5 98.2 97.9 97.5 98.2 97.9 Pulse 62 63 66 Resp 18 B/P (MAP) 146/77 (100) 118/68 (85) 136/70 (92) Pulse Ox 100 96 97 O2 Delivery Room Air Room Air Room Air Room Air 10/24/17 08:27 Pulse 66 B/P (MAP) 136/70 Intake and Output 10/23/17 10/23/17 10/24/17 15:00 23:00 07:00 Intake Total 200 ml 240 ml Balance 200 ml 240 ml MAI RIVERA MD Oct 24, 2017 09:31
[2017-10-24 11:00] VITALS: BP 140/77
--- NOTE | 2017-10-24 14:47 | PDOC ---
PROGRESS NOTES Subjective Subjective Patient seen and examined She reports feeling better today. Objective Objective Vital Signs Date Time Temp Pulse Resp B/P (MAP) Pulse Ox O2 Delivery O2 Flow Rate FiO2 10/24/17 11:00 98.1 62 17 140/77 (98) 97 Room Air 98.1 Intake and Output 10/24/17 07:00 Intake Total 440 ml Balance 440 ml Intake Oral 440 ml # Voids 3 Physical Exam Abdomen: Normal bowel sounds Heart: Regular rate General: mild distress Lungs: Clear to auscultation Assessment Assessment Problems Medical Problems: (1) Chest pain Status: Acute (2) Dyspnea Status: Acute (3) Hypertension Status: Acute 1. Increasing dyspnea on exertion. Improved. Patient's d-dimer is normal. EKG shows no ischemic changes. Troponins are normal. ECHO pending. Checking for report from [facility] concerning possible recent stress test. She reports some type of echocardiographic abnormality earlier this year but a normal stress test. We'll gradually increase activities. NPO after midnight in case further testing is needed tomorrow. 2. Hypertension. Patient had pressures under better control. Will continue present treatments. 3. Reported history of DVTs. D-dimer is normal. 4. Morbid obesity. Comment Review of Relevant I have reviewed the following items keanu (where applicable) has been applied. Labs Laboratory Tests Test 10/23/17 01:10 10/23/17 04:15 10/23/17 07:15 10/23/17 20:32 White Blood Count 8.4 x10^3/uL (4.0-11.0) Red Blood Count 4.22 x10^6/uL (3.50-5.40) Hemoglobin 9.4 g/dL (12.0-15.5) Hematocrit 30.0 % (36.0-47.0) Mean Corpuscular Volume 71 fL (79-100) Mean Corpuscular Hemoglobin 22 pg (25-35) Mean Corpuscular Hemoglobin Concent 31 g/dL (31-37) Red Cell Distribution Width 17.8 % (11.5-14.5) Platelet Count 325 x10^3/uL (140-400) Neutrophils (%) (Auto) 53 % (31-73) Lymphocytes (%) (Auto) 36 % (24-48) Monocytes (%) (Auto) 7 % (0-9) Eosinophils (%) (Auto) 3 % (0-3) Basophils (%) (Auto) 1 % (0-3) Neutrophils # (Auto) 4.5 x10^3uL (1.8-7.7) Lymphocytes # (Auto) 3.0 x10^3/uL (1.0-4.8) Monocytes # (Auto) 0.6 x10^3/uL (0.0-1.1) Eosinophils # (Auto) 0.2 x10^3/uL (0.0-0.7) Basophils # (Auto) 0.1 x10^3/uL (0.0-0.2) Platelet Estimate Adequate (ADEQUATE) Hypochromasia Mod Anisocytosis Slight Microcytosis Present D-Dimer (Irena) 0.36 ug/mlFEU (0.00-0.50) Sodium Level 137 mmol/L (136-145) Potassium Level 3.8 mmol/L (3.5-5.1) Chloride Level 103 mmol/L (98-107) Carbon Dioxide Level 30 mmol/L (21-32) Anion Gap 4 (6-14) Blood Urea Nitrogen 20 mg/dL (7-20) Creatinine 1.1 mg/dL (0.6-1.0) Estimated GFR (Cockcroft-Gault) 64.1 BUN/Creatinine Ratio 18 (6-20) Glucose Level 149 mg/dL (70-99) Calcium Level 9.3 mg/dL (8.5-10.1) Total Bilirubin 0.2 mg/dL (0.2-1.0) Aspartate Amino Transf (AST/SGOT) 10 U/L (15-37) Alanine Aminotransferase (ALT/SGPT) 13 U/L (14-59) Alkaline Phosphatase 88 U/L (46-116) Troponin I Quantitative < 0.017 ng/mL (0.000-0.055) < 0.017 ng/mL (0.000-0.055) < 0.017 ng/mL (0.000-0.055) GY-Cik-P-Type Natriuretic Peptide 61 pg/mL (0-124) Total Protein 7.8 g/dL (6.4-8.2) Albumin 3.0 g/dL (3.4-5.0) Albumin/Globulin Ratio 0.6 (1.0-1.7) Iron Level 26 ug/dL (50-170) Total Iron Binding Capacity 407 ug/dL (250-450) Iron Saturation 6 % (15-34) Glucose (Fingerstick) 141 mg/dL (70-99) Test 10/24/17 07:35 White Blood Count 7.0 x10^3/uL (4.0-11.0) Red Blood Count 4.21 x10^6/uL (3.50-5.40) Hemoglobin 9.3 g/dL (12.0-15.5) Hematocrit 30.2 % (36.0-47.0) Mean Corpuscular Volume 72 fL (79-100) Mean Corpuscular Hemoglobin 22 pg (25-35) Mean Corpuscular Hemoglobin Concent 31 g/dL (31-37) Red Cell Distribution Width 18.3 % (11.5-14.5) Platelet Count 328 x10^3/uL (140-400) Neutrophils (%) (Auto) 60 % (31-73) Lymphocytes (%) (Auto) 31 % (24-48) Monocytes (%) (Auto) 5 % (0-9) Eosinophils (%) (Auto) 3 % (0-3) Basophils (%) (Auto) 1 % (0-3) Neutrophils # (Auto) 4.2 x10^3uL (1.8-7.7) Lymphocytes # (Auto) 2.2 x10^3/uL (1.0-4.8) Monocytes # (Auto) 0.4 x10^3/uL (0.0-1.1) Eosinophils # (Auto) 0.2 x10^3/uL (0.0-0.7) Basophils # (Auto) 0.1 x10^3/uL (0.0-0.2) Sodium Level 138 mmol/L (136-145) Potassium Level 4.4 mmol/L (3.5-5.1) Chloride Level 103 mmol/L (98-107) Carbon Dioxide Level 29 mmol/L (21-32) Anion Gap 6 (6-14) Blood Urea Nitrogen 19 mg/dL (7-20) Creatinine 0.9 mg/dL (0.6-1.0) Estimated GFR (Cockcroft-Gault) 80.9 Glucose Level 119 mg/dL (70-99) Calcium Level 9.0 mg/dL (8.5-10.1) Laboratory Tests Test 10/23/17 20:32 10/24/17 07:35 Glucose (Fingerstick) 141 mg/dL (70-99) White Blood Count 7.0 x10^3/uL (4.0-11.0) Red Blood Count 4.21 x10^6/uL (3.50-5.40) Hemoglobin 9.3 g/dL (12.0-15.5) Hematocrit 30.2 % (36.0-47.0) Mean Corpuscular Volume 72 fL (79-100) Mean Corpuscular Hemoglobin 22 pg (25-35) Mean Corpuscular Hemoglobin Concent 31 g/dL (31-37) Red Cell Distribution Width 18.3 % (11.5-14.5) Platelet Count 328 x10^3/uL (140-400) Neutrophils (%) (Auto) 60 % (31-73) Lymphocytes (%) (Auto) 31 % (24-48) Monocytes (%) (Auto) 5 % (0-9) Eosinophils (%) (Auto) 3 % (0-3) Basophils (%) (Auto) 1 % (0-3) Neutrophils # (Auto) 4.2 x10^3uL (1.8-7.7) Lymphocytes # (Auto) 2.2 x10^3/uL (1.0-4.8) Monocytes # (Auto) 0.4 x10^3/uL (0.0-1.1) Eosinophils # (Auto) 0.2 x10^3/uL (0.0-0.7) Basophils # (Auto) 0.1 x10^3/uL (0.0-0.2) Sodium Level 138 mmol/L (136-145) Potassium Level 4.4 mmol/L (3.5-5.1) Chloride Level 103 mmol/L (98-107) Carbon Dioxide Level 29 mmol/L (21-32) Anion Gap 6 (6-14) Blood Urea Nitrogen 19 mg/dL (7-20) Creatinine 0.9 mg/dL (0.6-1.0) Estimated GFR (Cockcroft-Gault) 80.9 Glucose Level 119 mg/dL (70-99) Calcium Level 9.0 mg/dL (8.5-10.1) Medications Current Medications Aspirin (Ashu Aspirin) 325 mg 1X ONCE PO Last administered on 10/23/17at 04:30 ; Start 10/23/17 at 04:30; Stop 10/23/17 at 04:31; Status DC Nitroglycerin (Nitrostat) 0.4 mg PRN Q5MIN PRN SL CHEST PAIN; Start 10/23/17 at 04:30 Ondansetron HCl (Zofran) 4 mg PRN Q8HRS PRN IV NAUSEA/VOMITING; Start 10/23/17 at 04:30; Stop 10/24/17 at 04:29; Status DC Morphine Sulfate (Morphine Sulfate) 2 mg PRN Q2HR PRN IV PAIN; Start 10/23/17 at 04:30; Stop 10/23/17 at 09:56; Status DC Nitroglycerin (Nitrostat) 0.4 mg PRN Q5MIN PRN SL CHEST PAIN; Start 10/23/17 at 04:15; Stop 10/23/17 at 09:56; Status DC Lidocaine (Lidoderm) 1 patch DAILY TD Last administered on 10/24/17at 08:26; Start 10/23/17 at 10:00 Miscellaneous (Lidoderm Patch Removal) 1 ea QHS MC Last administered on at 20:08; Start 10/23/17 at 21:00 Docusate Sodium (Colace) 100 mg PRN DAILY PRN PO CONSTIPATION; Start 10/23/17 at 10:00 Ferrous Sulfate (Feosol) 325 mg DAILYWBKFT PO Last administered on 10/24/17at 08 :26; Start 10/23/17 at 10:00 Verapamil HCl (Calan Sr) 240 mg DAILY PO Last administered on 10/24/17at 08:27; Start 10/23/17 at 10:00 Morphine Sulfate (Morphine Sulfate) 4 mg PRN Q2HR PRN IV PAIN; Start 10/23/17 at 10:00 Enoxaparin Sodium (Lovenox Per Pharmacy Prophylaxis Dosing) 1 each PRN DAILY PRN MC SEE COMMENTS; Start 10/23/17 at 10:15 Enoxaparin Sodium (Lovenox 60mg Syringe) 60 mg Q12HR SQ Last administered on 03/01at 08:26; Start 10/23/17 at 10:30 Al Hydroxide/Mg Hydroxide (Mylanta Plus Xs) 30 ml PRN Q2HR PRN PO HEARTBURN / GAS; Start 10/24/17 at 09:00 Iron Sucrose 500 mg/Sodium Chloride 275 ml @ 78.571 mls/ hr 1X ONCE IV Last administered on 10/24/17at 09:23; Start 10/24/17 at 09:30; Stop 10/24/17 at 12:59 ; Status DC Famotidine (Pepcid) 20 mg QHS PO ; Start 10/24/17 at 21:00 Famotidine (Pepcid) 20 mg 1X ONCE PO Last administered on 10/24/17at 09:23; Start 10/24/17 at 09:15; Stop 10/24/17 at 09:16; Status DC Active Scripts Active Colace (Docusate Sodium) 100 Mg Capsule 100 Mg PO PRN DAILY PRN Feosol (Ferrous Sulfate) 325 Mg Tablet 325 Mg PO DAILYWBKFT Reported Metformin Hcl 500 Mg Tablet 500 Mg PO BIDWMEALS Verapamil Er (Verapamil Hcl) 240 Mg Cap24h.pel 240 Mg PO DAILY Warfarin Sodium 2 Mg Tablet 1 Mg PO DAILY Vitals/I & O Vital Sign - Last 24 Hours 10/23/17 10/23/17 10/23/17 10/23/17 15:31 19:39 20:00 23:59 Temp 97.9 97.9 97.5 97.9 97.9 97.5 Pulse 98 58 62 Resp 18 20 20 B/P (MAP) 143/80 (101) 74/ 146/77 (100) Pulse Ox 98 99 100 O2 Delivery Room Air Room Air Room Air Room Air 10/24/17 10/24/17 10/24/17 10/24/17 03:10 07:56 08:00 08:27 Temp 98.2 97.9 98.2 97.9 Pulse 63 66 66 Resp 18 18 B/P (MAP) 118/68 (85) 136/70 (92) 136/70 Pulse Ox 96 97 O2 Delivery Room Air Room Air Room Air 10/24/17 11:00 Temp 98.1 98.1 Pulse 62 Resp 17 B/P (MAP) 140/77 (98) Pulse Ox 97 O2 Delivery Room Air Intake and Output 10/23/17 10/23/17 10/24/17 15:00 23:00 07:00 Intake Total 200 ml 240 ml Balance 200 ml 240 ml ABIODUN ANGULO MD Oct 24, 2017 14:46
[2017-10-24 15:53] VITALS: BP 118/61
[2017-10-24] MEDS: PATCH REMOVAL. MC SCH (19:38)
[2017-10-24 19:39] VITALS: BP 132/72
[2017-10-24] MEDS ORDERED: FAMOTIDINE 20 MG TABLET. PO SCH (21:00)
[2017-10-24 23:22] VITALS: BP 138/87
[2017-10-25 03:19] VITALS: BP 136/69
[2017-10-25 07:12] VITALS: BP 140/73
[2017-10-25] MEDS: LIDOCAINE (700MG/PATCH) PATCH. TD SCH (08:53)
[2017-10-25] MEDS: FERROUS SULFATE 325 MG TABLET. PO SCH (08:56)
[2017-10-25] MEDS: VERAPAMIL SR 120 MG TABLET.ER. PO SCH (08:56)
--- NOTE | 2017-10-25 09:22 | PDOC ---
PROGRESS NOTES Chief Complaint Chief Complaint chest pain angina with exertion RESOLVED hx of DVT, d-dimer low, dyspnea on exertion, RESOLVED morbid obesity, BMI 56 serum albumin low, mod malnutrition microcytic anemia, iron deficiency, pre Dm2 on metformin Dyspnea on exertion. Resolved. Patient's d-dimer is normal. EKG shows no ischemic changes. Troponins are normal. Work up at [facility] in Apr. 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 She reports being followed at [facility] FEELS BETTER wants to go home History of Present Illness History of Present Illness abd pain, gas Vitals Vitals Vital Signs Date Time Temp Pulse Resp B/P (MAP) Pulse Ox O2 Delivery O2 Flow Rate FiO2 10/25/17 08:56 61 140/73 10/25/17 07:12 98.1 20 100 Room Air 98.1 Physical Exam General: Alert, Oriented X3, Cooperative, No acute distress, mild distress Heart: Regular rate Lungs: Clear Abdomen: Normal bowel sounds Extremities: No clubbing, No edema Skin: No rashes, No significant lesion Assessment and Plan Assessmemt and Plan Problems Medical Problems: (1) Chest pain Status: Acute (2) Dyspnea Status: Acute (3) Hypertension Status: Acute Comment Review of Relevant I have reviewed the following items keanu (where applicable) has been applied. Labs Laboratory Tests Test 10/23/17 20:32 10/24/17 07:35 Glucose (Fingerstick) 141 mg/dL (70-99) White Blood Count 7.0 x10^3/uL (4.0-11.0) Red Blood Count 4.21 x10^6/uL (3.50-5.40) Hemoglobin 9.3 g/dL (12.0-15.5) Hematocrit 30.2 % (36.0-47.0) Mean Corpuscular Volume 72 fL (79-100) Mean Corpuscular Hemoglobin 22 pg (25-35) Mean Corpuscular Hemoglobin Concent 31 g/dL (31-37) Red Cell Distribution Width 18.3 % (11.5-14.5) Platelet Count 328 x10^3/uL (140-400) Neutrophils (%) (Auto) 60 % (31-73) Lymphocytes (%) (Auto) 31 % (24-48) Monocytes (%) (Auto) 5 % (0-9) Eosinophils (%) (Auto) 3 % (0-3) Basophils (%) (Auto) 1 % (0-3) Neutrophils # (Auto) 4.2 x10^3uL (1.8-7.7) Lymphocytes # (Auto) 2.2 x10^3/uL (1.0-4.8) Monocytes # (Auto) 0.4 x10^3/uL (0.0-1.1) Eosinophils # (Auto) 0.2 x10^3/uL (0.0-0.7) Basophils # (Auto) 0.1 x10^3/uL (0.0-0.2) Sodium Level 138 mmol/L (136-145) Potassium Level 4.4 mmol/L (3.5-5.1) Chloride Level 103 mmol/L (98-107) Carbon Dioxide Level 29 mmol/L (21-32) Anion Gap 6 (6-14) Blood Urea Nitrogen 19 mg/dL (7-20) Creatinine 0.9 mg/dL (0.6-1.0) Estimated GFR (Cockcroft-Gault) 80.9 Glucose Level 119 mg/dL (70-99) Calcium Level 9.0 mg/dL (8.5-10.1) Medications Current Medications Aspirin (Advice Wallet Aspirin) 325 mg 1X ONCE PO Last administered on 10/23/17at 04:30 ; Start 10/23/17 at 04:30; Stop 10/23/17 at 04:31; Status DC Nitroglycerin (Nitrostat) 0.4 mg PRN Q5MIN PRN SL CHEST PAIN; Start 10/23/17 at 04:30 Ondansetron HCl (Zofran) 4 mg PRN Q8HRS PRN IV NAUSEA/VOMITING; Start 10/23/17 at 04:30; Stop 10/24/17 at 04:29; Status DC Morphine Sulfate (Morphine Sulfate) 2 mg PRN Q2HR PRN IV PAIN; Start 10/23/17 at 04:30; Stop 10/23/17 at 09:56; Status DC Nitroglycerin (Nitrostat) 0.4 mg PRN Q5MIN PRN SL CHEST PAIN; Start 10/23/17 at 04:15; Stop 10/23/17 at 09:56; Status DC Lidocaine (Lidoderm) 1 patch DAILY TD Last administered on 10/24/17at 08:26; Start 10/23/17 at 10:00 Miscellaneous (Lidoderm Patch Removal) 1 ea QHS MC Last administered on at 20:08; Start 10/23/17 at 21:00 Docusate Sodium (Colace) 100 mg PRN DAILY PRN PO CONSTIPATION; Start 10/23/17 at 10:00 Ferrous Sulfate (Feosol) 325 mg DAILYWBKFT PO Last administered on 10/25/17at 08 :56; Start 10/23/17 at 10:00 Verapamil HCl (Calan Sr) 240 mg DAILY PO Last administered on 10/25/17at 08:56; Start 10/23/17 at 10:00 Morphine Sulfate (Morphine Sulfate) 4 mg PRN Q2HR PRN IV PAIN; Start 10/23/17 at 10:00 Enoxaparin Sodium (Lovenox Per Pharmacy Prophylaxis Dosing) 1 each PRN DAILY PRN MC SEE COMMENTS; Start 10/23/17 at 10:15 Enoxaparin Sodium (Lovenox 60mg Syringe) 60 mg Q12HR SQ Last administered on at 08:57; Start 10/23/17 at 10:30 Al Hydroxide/Mg Hydroxide (Mylanta Plus Xs) 30 ml PRN Q2HR PRN PO HEARTBURN / GAS; Start 10/24/17 at 09:00 Iron Sucrose 500 mg/Sodium Chloride 275 ml @ 78.571 mls/ hr 1X ONCE IV Last administered on 10/24/17at 09:23; Start 10/24/17 at 09:30; Stop 10/24/17 at 12:59 ; Status DC Famotidine (Pepcid) 20 mg QHS PO Last administered on 10/24/17at 20:36; Start at 21:00 Famotidine (Pepcid) 20 mg 1X ONCE PO Last administered on 10/24/17at 09:23; Start 10/24/17 at 09:15; Stop 10/24/17 at 09:16; Status DC Active Scripts Active Colace (Docusate Sodium) 100 Mg Capsule 100 Mg PO PRN DAILY PRN Feosol (Ferrous Sulfate) 325 Mg Tablet 325 Mg PO DAILYWBKFT Reported Metformin Hcl 500 Mg Tablet 500 Mg PO BIDWMEALS Verapamil Er (Verapamil Hcl) 240 Mg Cap24h.pel 240 Mg PO DAILY Warfarin Sodium 2 Mg Tablet 1 Mg PO DAILY Vitals/I & O Vital Sign - Last 24 Hours 10/24/17 10/24/17 10/24/17 10/24/17 11:00 15:53 19:39 20:00 Temp 98.1 99.3 98.8 98.1 99.3 98.8 Pulse 62 66 71 Resp 17 18 20 B/P (MAP) 140/77 (98) 118/61 (80) 132/72 (92) Pulse Ox 97 99 100 O2 Delivery Room Air Room Air Room Air Room Air 10/24/17 10/25/17 10/25/17 10/25/17 23:22 03:19 07:12 08:56 Temp 98.2 98.1 98.1 98.2 98.1 98.1 Pulse 66 68 61 61 Resp 20 16 20 B/P (MAP) 138/87 (104) 136/69 (91) 140/73 (95) 140/73 Pulse Ox 99 92 100 O2 Delivery Room Air Room Air Room Air Intake and Output 10/24/17 10/24/17 10/25/17 15:00 23:00 07:00 Intake Total 500 ml 360 ml Balance 500 ml 360 ml SARWAT GOLDBERG MD Oct 25, 2017 09:22
--- NOTE | 2017-10-25 09:53 | CARD ---
MR#: [id number] Date of Study: 10/24/2017 Ordering Physician: MAI RIVERA, Referring Physician: SUZIE COOPER Tech: Lanny Collado RDCS APPROVED REPORT EXAM: Two-dimensional and M-mode echocardiogram with Doppler and color Doppler. Other Information Quality : Fair INDICATION Dyspnea on Exertion RISK FACTORS Obesity 2D DIMENSIONS RVDd2.7 (2.9-3.5cm)Left Atrium(2D)3.4 (1.6-4.0cm) IVSd1.1 (0.7-1.1cm)Aortic Root(2D)2.7 (2.0-3.7cm) LVDd3.9 (3.9-5.9cm)LVOT Diameter2.0 (1.8-2.4cm) PWd1.1 (0.7-1.1cm)LVDs2.3 (2.5-4.0cm) FS (%) 30.0 %SV47.4 ml LVEF(%)60.0 (>50%) M-Mode DIMENSIONS Aortic Cusp Exc1.74 (1.5-2.0cm) Aortic Valve AoV Peak Jameson.403.3cm/sAoV VTI88.4cm AO Peak GR.65.1mmHgLVOT VTI 43.98cm AO Mean GR.37mmHgAVA (VTI)1.70cm2 Mitral Valve MV E Vmoayzrx935.9cm/sMV DECEL VDMU109yk MV A Oahnucqi765.8cm/sE/A Ratio1.4 TDI Lateral E' P. V8.82cm/sMedial E' P. V5.73cm/s E/Lateral E'16.2E/Medial E'24.9 Tricuspid Valve TR P. Ngunuoxz042hu/sRAP HCYAKNXG4igCx TR Peak Gr.27zkGnUCJU90yvUb Pulmonary Vein S1 Ueevansl00.9cm/sS2 Yvvjnnms71.64cm/s D2 Lxqdfjpx67.6cm/s LEFT VENTRICLE The left ventricle is normal size. There is normal left ventricular wall thickness. The left ventricu lar systolic function is normal and the ejection fraction is within normal range. The Ejection Fracti on is 55-60%. There is normal LV segmental wall motion. Transmitral Doppler flow pattern is Grade II- pseudonormal filling dynamics. RIGHT VENTRICLE The right ventricle is normal size. The right ventricular systolic function is normal. ATRIA The left atrium size is normal. The right atrium size is normal. The interatrial septum is intact wit h no evidence for an atrial septal defect or patent foramen ovale as noted on 2-D or Doppler imaging. AORTIC VALVE The aortic valve is not well visualized but appears trileaflet. Doppler and Color Flow revealed no si gnificant aortic regurgitation. The aortic valve is not clearly visualized there may be a chordae mov ing into the left ventricular outflow tract creating a subaortic stenosis. There is mild subvalvular aortic stenosis. There is mild aortic stenosis. MITRAL VALVE The mitral valve is normal in structure and function. There is no evidence of mitral valve prolapse. There is no mitral valve stenosis. Doppler and Color-flow revealed trace mitral regurgitation. TRICUSPID VALVE The tricuspid valve is normal in structure and function. Doppler and Color Flow revealed mild tricusp id regurgitation. There is moderate pulmonary hypertension. The PA pressure was estimated at 47 mmHg. There is no tricuspid valve stenosis. PULMONIC VALVE The pulmonic valve is not well visualized. GREAT VESSELS The aortic root is normal in size. The ascending aorta is not well seen. The IVC is normal in size an d collapses >50% with inspiration. PERICARDIAL EFFUSION There is no evidence of significant pericardial effusion. Critical Notification Critical Value: No <Conclusion> The left ventricle is normal size. The left ventricular systolic function is normal and the ejection fraction is within normal range. The Ejection Fraction is 55-60%. The aortic valve is not clearly visualized there may be a chordae moving into the left ventricular o utflow tract creating a subaortic stenosis. There is mild subvalvular aortic stenosis. There is mild aortic stenosis. Doppler and Color Flow revealed no significant aortic regurgitation. Doppler and Color-flow revealed trace mitral regurgitation. Doppler and Color Flow revealed mild tricuspid regurgitation. There is moderate pulmonary hypertension. The PA pressure was estimated at 47 mmHg. Signed by : Marin Everett MD Electronically Approved : 10/25/2017 09:51:56
[2017-10-25 11:00] VITALS: BP 167/87
--- NOTE | 2017-10-25 11:19 | PDOC ---
PROGRESS NOTES Subjective Subjective Patient seen and examined The patient feels well. Walking in the [place]. Wishes to go home. Objective Objective Vital Signs Date Time Temp Pulse Resp B/P (MAP) Pulse Ox O2 Delivery O2 Flow Rate FiO2 10/25/17 08:56 61 140/73 10/25/17 07:12 98.1 20 100 Room Air 98.1 Intake and Output 10/25/17 07:00 Intake Total 860 ml Balance 860 ml Intake Oral 860 ml # Voids 7 Physical Exam Abdomen: Normal bowel sounds Heart: Regular rate General: No acute distress Lungs: Clear to auscultation Assessment Assessment Problems Medical Problems: (1) Chest pain Status: Acute (2) Dyspnea Status: Acute (3) Hypertension Status: Acute 1. Dyspnea on exertion. Resolved. Patient's d-dimer is normal. EKG shows no ischemic changes. Troponins are normal. Work up at [facility] in Apr. 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 She reports being followed at [facility]. Feeling well. OK for discharge from a cardiac viewpoint with follow up at [facility]. 2. Hypertension. BP controlled. Will continue present treatments. 3. Reported history of DVTs. D-dimer is normal. 4. Morbid obesity. Comment Review of Relevant I have reviewed the following items keanu (where applicable) has been applied. Labs Laboratory Tests Test 10/23/17 20:32 10/24/17 07:35 Glucose (Fingerstick) 141 mg/dL (70-99) White Blood Count 7.0 x10^3/uL (4.0-11.0) Red Blood Count 4.21 x10^6/uL (3.50-5.40) Hemoglobin 9.3 g/dL (12.0-15.5) Hematocrit 30.2 % (36.0-47.0) Mean Corpuscular Volume 72 fL (79-100) Mean Corpuscular Hemoglobin 22 pg (25-35) Mean Corpuscular Hemoglobin Concent 31 g/dL (31-37) Red Cell Distribution Width 18.3 % (11.5-14.5) Platelet Count 328 x10^3/uL (140-400) Neutrophils (%) (Auto) 60 % (31-73) Lymphocytes (%) (Auto) 31 % (24-48) Monocytes (%) (Auto) 5 % (0-9) Eosinophils (%) (Auto) 3 % (0-3) Basophils (%) (Auto) 1 % (0-3) Neutrophils # (Auto) 4.2 x10^3uL (1.8-7.7) Lymphocytes # (Auto) 2.2 x10^3/uL (1.0-4.8) Monocytes # (Auto) 0.4 x10^3/uL (0.0-1.1) Eosinophils # (Auto) 0.2 x10^3/uL (0.0-0.7) Basophils # (Auto) 0.1 x10^3/uL (0.0-0.2) Sodium Level 138 mmol/L (136-145) Potassium Level 4.4 mmol/L (3.5-5.1) Chloride Level 103 mmol/L (98-107) Carbon Dioxide Level 29 mmol/L (21-32) Anion Gap 6 (6-14) Blood Urea Nitrogen 19 mg/dL (7-20) Creatinine 0.9 mg/dL (0.6-1.0) Estimated GFR (Cockcroft-Gault) 80.9 Glucose Level 119 mg/dL (70-99) Calcium Level 9.0 mg/dL (8.5-10.1) Medications Current Medications Aspirin (Ashu Aspirin) 325 mg 1X ONCE PO Last administered on 10/23/17at 04:30 ; Start 10/23/17 at 04:30; Stop 10/23/17 at 04:31; Status DC Nitroglycerin (Nitrostat) 0.4 mg PRN Q5MIN PRN SL CHEST PAIN; Start 10/23/17 at 04:30 Ondansetron HCl (Zofran) 4 mg PRN Q8HRS PRN IV NAUSEA/VOMITING; Start 10/23/17 at 04:30; Stop 10/24/17 at 04:29; Status DC Morphine Sulfate (Morphine Sulfate) 2 mg PRN Q2HR PRN IV PAIN; Start 10/23/17 at 04:30; Stop 10/23/17 at 09:56; Status DC Nitroglycerin (Nitrostat) 0.4 mg PRN Q5MIN PRN SL CHEST PAIN; Start 10/23/17 at 04:15; Stop 10/23/17 at 09:56; Status DC Lidocaine (Lidoderm) 1 patch DAILY TD Last administered on 10/24/17at 08:26; Start 10/23/17 at 10:00 Miscellaneous (Lidoderm Patch Removal) 1 ea QHS MC Last administered on at 20:08; Start 10/23/17 at 21:00 Docusate Sodium (Colace) 100 mg PRN DAILY PRN PO CONSTIPATION; Start 10/23/17 at 10:00 Ferrous Sulfate (Feosol) 325 mg DAILYWBKFT PO Last administered on 10/25/17at 08 :56; Start 10/23/17 at 10:00 Verapamil HCl (Calan Sr) 240 mg DAILY PO Last administered on 10/25/17at 08:56; Start 10/23/17 at 10:00 Morphine Sulfate (Morphine Sulfate) 4 mg PRN Q2HR PRN IV PAIN; Start 10/23/17 at 10:00 Enoxaparin Sodium (Lovenox Per Pharmacy Prophylaxis Dosing) 1 each PRN DAILY PRN MC SEE COMMENTS; Start 10/23/17 at 10:15 Enoxaparin Sodium (Lovenox 60mg Syringe) 60 mg Q12HR SQ Last administered on at 08:57; Start 10/23/17 at 10:30 Al Hydroxide/Mg Hydroxide (Mylanta Plus Xs) 30 ml PRN Q2HR PRN PO HEARTBURN / GAS; Start 10/24/17 at 09:00 Iron Sucrose 500 mg/Sodium Chloride 275 ml @ 78.571 mls/ hr 1X ONCE IV Last administered on 10/24/17at 09:23; Start 10/24/17 at 09:30; Stop 10/24/17 at 12:59 ; Status DC Famotidine (Pepcid) 20 mg QHS PO Last administered on 10/24/17at 20:36; Start at 21:00 Famotidine (Pepcid) 20 mg 1X ONCE PO Last administered on 10/24/17at 09:23; Start 10/24/17 at 09:15; Stop 10/24/17 at 09:16; Status DC Active Scripts Active Colace (Docusate Sodium) 100 Mg Capsule 100 Mg PO PRN DAILY PRN Feosol (Ferrous Sulfate) 325 Mg Tablet 325 Mg PO DAILYWBKFT Reported Metformin Hcl 500 Mg Tablet 500 Mg PO BIDWMEALS Verapamil Er (Verapamil Hcl) 240 Mg Cap24h.pel 240 Mg PO DAILY Warfarin Sodium 2 Mg Tablet 1 Mg PO DAILY Vitals/I & O Vital Sign - Last 24 Hours 10/24/17 10/24/17 10/24/17 10/24/17 15:53 19:39 20:00 23:22 Temp 99.3 98.8 98.2 99.3 98.8 98.2 Pulse 66 71 66 Resp 18 20 20 B/P (MAP) 118/61 (80) 132/72 (92) 138/87 (104) Pulse Ox 99 100 99 O2 Delivery Room Air Room Air Room Air Room Air 10/25/17 10/25/17 10/25/17 03:19 07:12 08:56 Temp 98.1 98.1 98.1 98.1 Pulse 68 61 61 Resp 16 20 B/P (MAP) 136/69 (91) 140/73 (95) 140/73 Pulse Ox 92 100 O2 Delivery Room Air Room Air Intake and Output 10/24/17 10/24/17 10/25/17 15:00 23:00 07:00 Intake Total 500 ml 360 ml Balance 500 ml 360 ml ABIODUN ANGULO MD Oct 25, 2017 11:18
--- NOTE | 2017-10-25 13:31 | PDOC3 ---
Discharge Summary Date of Admission: Oct 23, 2017 Date of Discharge: Oct 25, 2017 Follow-Up: 3-5 days Admitting Diagnosis comment: Chief Complaint Chief Complaint chest pain angina with exertion RESOLVED hx of DVT, d-dimer low, dyspnea on exertion, RESOLVED morbid obesity, BMI 56 serum albumin low, mod malnutrition microcytic anemia, iron deficiency, pre Dm2 on metformin Dyspnea on exertion. Resolved. Patient's d-dimer is normal. EKG shows no ischemic changes. Troponins are normal. Work up at [facility] in Apr. 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 She reports being followed at [facility] FEELS BETTER wants to go home, counseled on low sodium diet intake, has been eating lots of salt and lunch meats History of Present Illness History of Present Illness abd pain, gas Vitals Vitals Vital Signs Date Time Temp Pulse Resp B/P (MAP) Pulse Ox O2 Delivery O2 Flow Rate FiO2 10/25/17 08:56 61 140/73 10/25/17 07:12 98.1 20 100 Room Air 98.1 Physical Exam General: Alert, Oriented X3, Cooperative, No acute distress, Heart: Regular rate gr 2/6 maria t Lungs: Clear Abdomen: Normal bowel sounds Extremities: No clubbing, No edema Skin: No rashes, No significant lesion FINAL DIAGNOSIS Problems Medical Problems: (1) Chest pain Status: Acute (2) Dyspnea Status: Acute (3) Hypertension Status: Acute Brief Hospital Course Ms. Flood is a 47 old [sex] who presented with [ chf ] CONDITION AT DISCHARGE: Improved Discharge Medications Current Medications Aspirin (Ashu Aspirin) 325 mg 1X ONCE PO Last administered on 10/23/17at 04:30 ; Start 10/23/17 at 04:30; Stop 10/23/17 at 04:31; Status DC Nitroglycerin (Nitrostat) 0.4 mg PRN Q5MIN PRN SL CHEST PAIN; Start 10/23/17 at 04:30 Ondansetron HCl (Zofran) 4 mg PRN Q8HRS PRN IV NAUSEA/VOMITING; Start 10/23/17 at 04:30; Stop 10/24/17 at 04:29; Status DC Morphine Sulfate (Morphine Sulfate) 2 mg PRN Q2HR PRN IV PAIN; Start 10/23/17 at 04:30; Stop 10/23/17 at 09:56; Status DC Nitroglycerin (Nitrostat) 0.4 mg PRN Q5MIN PRN SL CHEST PAIN; Start 10/23/17 at 04:15; Stop 10/23/17 at 09:56; Status DC Lidocaine (Lidoderm) 1 patch DAILY TD Last administered on 10/24/17at 08:26; Start 10/23/17 at 10:00 Miscellaneous (Lidoderm Patch Removal) 1 ea QHS MC Last administered on at 20:08; Start 10/23/17 at 21:00 Docusate Sodium (Colace) 100 mg PRN DAILY PRN PO CONSTIPATION; Start 10/23/17 at 10:00 Ferrous Sulfate (Feosol) 325 mg DAILYWBKFT PO Last administered on 10/25/17at 08 :56; Start 10/23/17 at 10:00 Verapamil HCl (Calan Sr) 240 mg DAILY PO Last administered on 10/25/17at 08:56; Start 10/23/17 at 10:00 Morphine Sulfate (Morphine Sulfate) 4 mg PRN Q2HR PRN IV PAIN; Start 10/23/17 at 10:00 Enoxaparin Sodium (Lovenox Per Pharmacy Prophylaxis Dosing) 1 each PRN DAILY PRN MC SEE COMMENTS; Start 10/23/17 at 10:15 Enoxaparin Sodium (Lovenox 60mg Syringe) 60 mg Q12HR SQ Last administered on at 08:57; Start 10/23/17 at 10:30 Al Hydroxide/Mg Hydroxide (Mylanta Plus Xs) 30 ml PRN Q2HR PRN PO HEARTBURN / GAS; Start 10/24/17 at 09:00 Iron Sucrose 500 mg/Sodium Chloride 275 ml @ 78.571 mls/ hr 1X ONCE IV Last administered on 10/24/17at 09:23; Start 10/24/17 at 09:30; Stop 10/24/17 at 12:59 ; Status DC Famotidine (Pepcid) 20 mg QHS PO Last administered on 10/24/17at 20:36; Start at 21:00 Famotidine (Pepcid) 20 mg 1X ONCE PO Last administered on 10/24/17at 09:23; Start 10/24/17 at 09:15; Stop 10/24/17 at 09:16; Status DC Active Scripts Active Colace (Docusate Sodium) 100 Mg Capsule 100 Mg PO PRN DAILY PRN Feosol (Ferrous Sulfate) 325 Mg Tablet 325 Mg PO DAILYWBKFT Reported Metformin Hcl 500 Mg Tablet 500 Mg PO BIDWMEALS Verapamil Er (Verapamil Hcl) 240 Mg Cap24h.pel 240 Mg PO DAILY Warfarin Sodium 2 Mg Tablet 1 Mg PO DAILY Vital Signs Vital Signs Date Time Temp Pulse Resp B/P (MAP) Pulse Ox O2 Delivery O2 Flow Rate FiO2 10/25/17 11:00 97.9 63 20 167/87 (113) 96 Room Air 97.9 Labs Laboratory Tests Test 10/23/17 20:32 10/24/17 07:35 Glucose (Fingerstick) 141 mg/dL (70-99) White Blood Count 7.0 x10^3/uL (4.0-11.0) Red Blood Count 4.21 x10^6/uL (3.50-5.40) Hemoglobin 9.3 g/dL (12.0-15.5) Hematocrit 30.2 % (36.0-47.0) Mean Corpuscular Volume 72 fL (79-100) Mean Corpuscular Hemoglobin 22 pg (25-35) Mean Corpuscular Hemoglobin Concent 31 g/dL (31-37) Red Cell Distribution Width 18.3 % (11.5-14.5) Platelet Count 328 x10^3/uL (140-400) Neutrophils (%) (Auto) 60 % (31-73) Lymphocytes (%) (Auto) 31 % (24-48) Monocytes (%) (Auto) 5 % (0-9) Eosinophils (%) (Auto) 3 % (0-3) Basophils (%) (Auto) 1 % (0-3) Neutrophils # (Auto) 4.2 x10^3uL (1.8-7.7) Lymphocytes # (Auto) 2.2 x10^3/uL (1.0-4.8) Monocytes # (Auto) 0.4 x10^3/uL (0.0-1.1) Eosinophils # (Auto) 0.2 x10^3/uL (0.0-0.7) Basophils # (Auto) 0.1 x10^3/uL (0.0-0.2) Sodium Level 138 mmol/L (136-145) Potassium Level 4.4 mmol/L (3.5-5.1) Chloride Level 103 mmol/L (98-107) Carbon Dioxide Level 29 mmol/L (21-32) Anion Gap 6 (6-14) Blood Urea Nitrogen 19 mg/dL (7-20) Creatinine 0.9 mg/dL (0.6-1.0) Estimated GFR (Cockcroft-Gault) 80.9 Glucose Level 119 mg/dL (70-99) Calcium Level 9.0 mg/dL (8.5-10.1) Allergies Allergies Coded Allergies Type Severity Reaction Last Updated Verified Penicillins Allergy Unknown 10/23/17 Yes Disposition/Orders: D/C to Home Patient Instructions d/c planning 32 min SARWAT GOLDBERG MD Oct 25, 2017 13:31
--- NOTE | 2017-10-25 13:32 | DISCH ---
DISCHARGE INSTRUCTIONS Condition on Discharge Condition on Discharge: Guarded Activity After Discharge Activity Instructions for Disc: Activity as tolerated Lifting Instructions after Dis: No heavy lifting Exercise Instruction after Dis: Walk 10 min, 3 x per day, Progress as tolerated Driving Instructions after Dis: Do not drive today Weight Bearing Status after Di: As tolerated Diet after Discharge Diet after Discharge: Cardiac, Regular, Low Sodium 2 gm Checks after Discharge Checks after discharge: Check blood press - daily Contacting the DR. after DC Call your doctor for: If your condition worsens SARWAT GOLDBERG MD Oct 25, 2017 13:32
== END 2017-10-25 14:00 | disposition home or self-care (01) | DRG 311 ==
LOC: ER 00:32 → 6 SOUTH 04:05
PROVIDERS: ADMIT Internal Medicine; ATTEND Internal Medicine
DX: I20.9 Angina pectoris, unspecified (principal); E44.0 Moderate protein-calorie malnutrition; I42.1 Obstructive hypertrophic cardiomyopathy; Z68.43 Body mass index [BMI] 50.0-59.9, adult; E66.01 Morbid (severe) obesity due to excess calories; F41.9 Anxiety disorder, unspecified; D50.9 Iron deficiency anemia, unspecified; E11.9 Type 2 diabetes mellitus without complications; I50.9 Heart failure, unspecified; I11.0 Hypertensive heart disease with heart failure; Z98.891 History of uterine scar from previous surgery; Z86.718 Personal history of other venous thrombosis and embolism; Z88.0 Allergy status to penicillin
CPT/HCPCS: 36415; 71045; 80048; 80053; 82962; 83540; 83550; 83880; 84484; 85025; 85379; 93005; 93306; J1650; J1756; J7050; 99285-25; J7030